=== PATIENT | male | born 2000 | race Caucasian/White ===

== ENCOUNTER 2025-04-12 20:30 | Emergency (ER) | payer BC, SELFPAY ==
[2025-04-12 20:31] VITALS: BP 124/90; PULSE 103; RESP 16; TEMP 36.6; O2SAT 99; BMI 19.2
[2025-04-12 20:59] LABS: Hematocrit 50.5 % (40-54); Hemoglobin 17.0 g/dL (13.0-16.5); Immature Granulocytes Count 0.080 X10^3/uL (0.0-0.0); Mean Corp Hgb Conc 33.7 g/dL (32-36); Mean Corpuscular Volume 85.0 fL (80-94); Mean Platelet Vol. 9.3 fl (6.2-12.0); NRBC Flagged by Analyzer 0 % (0-5); POSITIVE DIFFERENTIAL YES; Platelet Count 275 K/mm3 (150-450); RBC Distribution Width CV 12.2 % (11.6-14.6); RBC Distribution Width SD 37.7 fl (35.1-43.9); Red Blood Count 5.94 M/mm3 (4.6-6.2); White Blood Count 15.5 K/mm3 (4.4-11.0)
[2025-04-12 21:19] LABS: AST(SGOT) 31 U/L (<=37); Alanine Aminotransfer ALT/SGPT 25 U/L (<=46); Albumin, Serum 4.9 g/dL (3.5-5.0); Alkaline Phosphatase 71 U/L (40-129); Anion Gap 18 (5-15); BUN 13 mg/dL (4-19); BUN/Creat Ratio 14.1 RATIO (10-20); Calcium,Total 9.6 mg/dL (7.6-11.0); Carbon Dioxide 22.4 mmol/L (21.0-32.0); Chloride 101 mmol/L (98-108); Estimated Creatinine Clearance 103.91 ml/min (50-250); Globulin 2.6 g/dL (2.2-4.2); Glucose 150 mg/dL (70-99); Lipase 16 U/L (13-75); Potassium 3.9 mmol/L (3.3-5.1)
--- NOTE | 2025-04-12 21:27 | CT_ITS ---
PROCEDURE: ABDOMEN/PELVIS W IV CONT ONLY 04/12/2025 REASON FOR EXAM: RIGHT SIDED ABD PAIN TECHNIQUE: Procedure Code: [id number] Modality: CT Procedure: ABDOMEN/PELVIS W IV CONT ONLY Coronal and Sagittal reconstruction series were provided. CONTRAST: 100 cc of Isovue 370 One or more dose reduction techniques were used (e.g., Automated exposure control, adjustment of the mA and/or kV according to patient size, use of iterative reconstruction technique. COMPARISON: None available. FINDINGS: Lung bases: Unremarkable. Liver: Normal size. No mass. Gallbladder: Unremarkable. No biliary ductal dilatation. Spleen: Normal size. Pancreas: Normal size without evidence of mass surrounding inflammation or ductal dilation. Adrenals: No adrenal masses. Kidneys: Normal renal sizes. No hydronephrosis. Bladder: Unremarkable. Reproductive Organs: No pelvic masses. Prostate normal-size. Bowel: Diffuse watery stool throughout the small and large bowel loops compatible with diarrhea. Appendix: Normal. Lymph nodes: Unremarkable. Vasculature: The abdominal aorta and IVC are normal. Peritoneum / Retroperitoneum: No free fluid or air. Bones: No acute fractures. CT/Abdomen/Pelvis W IV Cont ONLY IMPRESSION: 1. Diffuse watery stool throughout the small and large bowels compatible with d iarrhea. 2. No other acute findings in the abdomen or pelvis as imaged. Reading [facility]
--- NOTE | 2025-04-12 21:29 | ED.VIS.GI ---
HPI HPI - GI History of Present Illness Chief Complaint: Abd Pain Informant: patient and parent (x2) Narrative Narrative: Patient is a 24-year-old male presenting with nausea, emesis, and abdominal discomfort. 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 - Experienced sudden nausea followed by a single episode of emesis, described as extensive. - Abdominal pain started a little later, he feels like it is maybe focused just to the right of the umbilicus. - Currently taking Zoloft for anxiety and depression. - Has a known tree nut allergy. - Has a history of food poisoning, but states this episode feels different. - Accompanied by parents who are providing additional history. [facility] Medical History (Updated 04/13/25 @ 01:[address] Jhonny Trivedi MD) Anxiety and depression Home Medications ?Medication ?Instructions ?Recorded ?Last Taken ?Type dicyclomine 20 mg tablet 20 mg PO Q6H PRN PRN abdominal 04/13/25 Unknown Rx discomfort #15 tabs ondansetron 8 mg disintegrating 8 mg PO Q8H PRN nausea and 04/13/25 Unknown Rx tablet vomiting #15 tabs Allergy/AdvReac Type Severity Reaction Status Date / Time No Known Allergies Allergy Verified 04/12/25 20:32 Social History Smoking Status: Never smoker ROS ROS ED Constitutional Constitutional ED: Denies chills or fever(s) Eyes Eyes: Denies change in vision or diplopia ENT ENT ED: Denies rhinorrhea or sore throat Cardiovascular Cardiovascular: Denies chest pain or palpitations Respiratory/Chest Respiratory/Chest: Denies cough or dyspnea Gastrointestinal Gastrointestinal: Reports abdominal pain, nausea and vomiting; Denies diarrhea Genitourinary Genitourinary ED: Denies dysuria or hematuria Musculoskeletal Musculoskeletal: Denies back pain or neck pain Integumentary Denies abscess or rash Neurologic Neurologic: Reports paresthesias RUE and LUE; Denies headache(s) or weakness Psychiatric Psychiatric: Reports anxiety; Denies suicidal thoughts EXAM Physical Exam Const Vital Signs: 04/12/25 20:31 04/12/25 21:30 04/12/25 23:00 Temperature 98 F Temperature Source Temporal Pulse Rate 103 H 111 H 101 H Respiratory Rate 16 14 18 Blood Pressure 124/90 H 113/72 124/64 H Blood Pressure Mean 101 85 84 Pulse Ox 99 100 97 Oxygen Delivery Method Room Air Room Air Room Air 04/13/25 00:47 Temperature 98 F Temperature Source Pulse Rate 104 H Respiratory Rate 16 Blood Pressure 114/65 Blood Pressure Mean 81 Pulse Ox 99 Oxygen Delivery Method Positive well nourished and well developed General Appearance ED: well developed and NAD HEENT Reports moist mucous membranes HEENT Narrative: Dry lips normocephalic and atraumatic Eyes PERRL and EOMs intact bilaterally Neck full ROM and supple Resp normal respiratory effort and clear to auscultation bilaterally Cardio regular rate, regular rhythm and no murmurs GI non-distended GI Narrative: Tender multiple areas of the abdomen, but worst at McBurney's point right lower quadrant. No guarding or rebound. No left lower quadrant tenderness. Negative Bautista. Negative Rovsing. Negative obturator. Negative psoas. Auscultation: normoactive bowel sounds Palpation: soft Back/Spine no CVA tenderness General Back: other FROM Extremity normal to inspection General Extremety ED: Negative for edema, pulses abnormal or tenderness General Extremity: Negative for edema or pulses abnormal Neuro oriented x3, CN's II-XII intact bilaterally and no sensory deficits noted Sensorium / Orientation: awake and alert Motor Exam: strength 5/5 throughout Psych Mood & Affect: anxious Skin no rashes or lesions noted and no wounds MDM MDM MDM Narrative Medical decision making narrative: The patient has diffuse abdominal tenderness, which is worse in the right lower quadrant, and a leukocytosis over 15 with a leftward shift, raising concern for early acute appendicitis. He is quite anxious, which I believe caused his bilateral hand cramping and paresthesias. After administering fluids, morphine, and Zofran, he became more comfortable and less anxious, and the hand symptoms resolved as expected. His CMP is, for the most part, unremarkable, and urinalysis is also unremarkable. A CT scan shows a normal appendix and fluid-filled bowel consistent with gastroenteritis. Subsequently, I checked on the patient, and he had another episode of diarrhea, but we were unable to collect a specimen. There is no blood present. My suspicion remains gastroenteritis. The family asked if this could be food poisoning, and I cannot rule that out. I ordered an enteric bacterial panel, but we could not obtain a specimen for testing. The patient is tolerating oral fluids and feeling better. The plan is to discharge him with supportive care, prescriptions for dicyclomine and Zofran, and an order for an enteric bacterial panel if symptoms persist beyond two or three days. Portions of this note were generated using voice recognition software ([employer]). I have reviewed the contents and every effort has been made to ensure accuracy; however, inadvertent errors in grammar, spelling, punctuation, or word choice may occur, that were not noted before signing the document and should not alter the intended clinical meaning. Lab Data Attestation: I reviewed the patient's lab results. Labs: Laboratory Results - last 24 hr 04/12/25 04/12/25 20:52 23:33 WBC 15.5 H RBC 5.94 Hgb 17.0 H Hct 50.5 MCV 85.0 MCH 28.6 MCHC 33.7 RDW Std Deviation 37.7 RDW Coeff of Candace 12.2 Plt Count 275 MPV 9.3 Immature Gran % (Auto) 0.500 Neut % (Auto) 89.2 H Lymph % (Auto) 3.5 L [place] % (Auto) 5.8 Eos % (Auto) 0.6 Baso % (Auto) 0.4 Absolute Neuts (auto) 13.9 H Absolute Lymphs (auto) 0.55 L Nucleated RBC % 0 Sodium 141 Potassium 3.9 Chloride 101 Carbon Dioxide 22.4 Anion Gap 18 H BUN 13 Creatinine 0.93 Estim Creat Clear Calc 103.91 Est GFR (MDRD) Non-Af 119 BUN/Creatinine Ratio 14.1 Glucose 150 H Calcium 9.6 Total Bilirubin 0.52 AST 31 ALT 25 Alkaline Phosphatase 71 Total Protein 7.5 Albumin 4.9 Globulin 2.6 Albumin/Globulin Ratio 1.9 Lipase 16 Urine Color Yellow Urine Clarity Clear Urine pH 8.0 Ur Specific [place] 1.010 Urine Protein 30 H Urine Glucose (UA) Normal Urine Ketones 5 H Urine Occult Blood Negative Urine Nitrite Negative Urine Bilirubin Negative Urine Urobilinogen Normal Ur Leukocyte Esterase Negative Urine RBC 0-5 SEEN Urine WBC 0-5 SEEN Ur Squamous Epith Cells 0 SEEN Urine Bacteria RARE Urine Mucus 0 SEEN Radiography Diagnostic Testing: Clinical Impression(s) from Imaging Studies Abdomen/Pelvis CT 04/12/25 21:27 IMPRESSION: 1. Diffuse watery stool throughout the small and large bowels compatible with diarrhea. 2. No other acute findings in the abdomen or pelvis as imaged. Reading Location: [facility] Discharge Plan Triage Chief Complaint: Abd Pain ED Provider: Jhonny Trivedi Dx/Rx/DC Orders Clinical Impression: Gastroenteritis, Diffuse abdominal pain, Leukocytosis, Acute anxiety Instructions: ED Food Pois or Gastroenteritis Prescriptions: New ondansetron 8 mg tablet,disintegrating 8 mg PO Q8H PRN (Reason: nausea and vomiting) Qty: 15 0RF dicyclomine 20 mg tablet 20 mg PO Q6H PRN PRN (Reason: abdominal discomfort) Qty: 15 0RF Other Ambulatory Orders: ENTERIC PATHOGEN PANEL STOOL (Routine) Timeframe: 3 Days Facility: [facility] - Location: Laboratory Ordered By: Dr. Jhonny Trivedi Primary Care Provider: KANG GARDNER Referrals: KANG GARDNER [Other] Activity Restrictions/Additional Instructions: - Drink clear fluids and rest at home to support recovery from what is likely viral gastroenteritis. - Take Zofran (ondansetron) as prescribed to control nausea. - Take dicyclomine as prescribed to relieve abdominal cramping. - If nausea, diarrhea, or abdominal pain persists beyond 2?3 days, complete the enteric bacterial panel using the provided order & stool collection kit and contact the office for further evaluation. Print Language: [place] Disposition Disposition: Home, Self Care
[2025-04-12 21:30] VITALS: BP 113/72; PULSE 111; RESP 14; O2SAT 100
[2025-04-12] MEDS: 0.9% Normal Saline (1000mL) 1,000 ML 999 ML IV (21:38)
[2025-04-12 23:00] VITALS: BP 124/64; PULSE 101; RESP 18; O2SAT 97
[2025-04-12 23:45] LABS: Mucous, Urine 0 SEEN /hpf (<or=2+); Squamous Epithelial Cells - UA 0 SEEN /hpf (0-5)
[2025-04-12 23:46] LABS: Color, Urine Yellow (Yellow); Glucose, Dipstick Normal (Normal); Ketone-Dipstick 5 mg/dl (Negative); Leukocyte Esterase-Dipstick Negative /ul (Negative); Nitrite-Dipstick Negative (Negative); Occult Blood-Urine Negative /ul (Negative); Protein-Dipstick 30 mg/dl (Negative); Specific Gravity, Urine 1.010 (1.002-1.030); Urine Bilirubin Dipstick Negative (Negative)
[2025-04-13 00:06] LABS: Red Blood Cells-Urine 0-5 SEEN /hpf (0-5)
[2025-04-13 00:47] VITALS: BP 114/65; PULSE 104; RESP 16; TEMP 36.6; O2SAT 99
[2025-04-13 01:00] VITALS: BP 114/65; PULSE 105; O2SAT 97
== END 2025-04-13 01:55 | disposition home or self-care (01) ==
PROVIDERS: Emergency Provider Emergency Medicine; Visit Provider Emergency Medicine
DX: K52.9 Noninfective gastroenteritis and colitis, unspecified (principal); F41.9 Anxiety disorder, unspecified; D72.829 Elevated white blood cell count, unspecified
CPT/HCPCS: 74177; 80053; 81001; 83690; 85025; 96361; 96374; 96375; 96376; 99283; Q9967; A4216; J2405